=== PATIENT | female | born 1965 | race Caucasian/White ===

== ENCOUNTER 2021-09-01 18:51 | Emergency (ER) | payer OTHER, BC, SELFPAY ==
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
[2021-09-01 18:56] VITALS: BP 156/90; PULSE 83; RESP 22; O2SAT 97
[2021-09-01 18:59] VITALS: BP 165/89; PULSE 82; RESP 16; TEMP 37.3; O2SAT 97
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
[2021-09-01] MEDS: MORPHINE SULFATE (*CRX) 4 MG/ML INJ IV PUSH (19:48)
[2021-09-01] MEDS: ONDANSETRON INJ 4 MG/2 ML VIAL IV PUSH (19:54)
[2021-09-01] MEDS: TETANUS,DIPHTHERIA,AC PERTUSSIS ADULT (0.5 ML) BOOSTRIX IM (21:29)
[2021-09-01] MEDS: ACETAMINOPHEN 500 MG TABLET 1000 MG PO (22:04)
--- NOTE | 2021-09-01 23:58 | PC.NURSE ---
Put sveta wrap around left wrist
[2021-09-02 00:42] VITALS: BP 143/68; PULSE 65; RESP 18; O2SAT 96
== END 2021-09-02 00:42 | disposition home or self-care (01) ==
PROVIDERS: Emergency Provider Emergency Medicine
DX: S06.0X0A Concussion without loss of consciousness, initial encounter (principal); S80.02XA Contusion of left knee, initial encounter; S60.212A Contusion of left wrist, initial encounter; Z23 Encounter for immunization; V49.40XA Driver injured in collision with unspecified motor vehicles in traffic accident, initial encounter
CPT/HCPCS: 29125; 70450; 72125; 73110; 73130; 73200; 73560; 90471; 90715; 96374; 96375; 99284; A9270; J2270; J2405

== ENCOUNTER 2022-04-13 16:46 | Outpatient (CLI) | payer BC, SELFPAY ==
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
== END 2022-04-13 16:47 | disposition home or self-care (01) ==
PROVIDERS: PCP Family Medicine; Visit Provider Family Medicine
DX: Z12.31 Encounter for screening mammogram for malignant neoplasm of breast (principal); Z78.0 Asymptomatic menopausal state
CPT/HCPCS: 77063; 77067; 77080